=== PATIENT | male | born 1945 | race African-American/Black ===

== ENCOUNTER 2021-10-12 06:28 | Emergency (ER) | payer OTHER ==
[~2021-10-12] VITALS: Ht 177.8 cm; Wt 80.7 kg
== END 2021-10-12 11:01 | disposition home or self-care (01) ==
LOC: ER 06:28
DX: H66.92 Otitis media, unspecified, left ear (principal); I10 Essential (primary) hypertension; E11.9 Type 2 diabetes mellitus without complications; H93.12 Tinnitus, left ear; H92.02 Otalgia, left ear